=== PATIENT | male | born 1975 | race Caucasian/White ===

== ENCOUNTER 2018-09-05 18:26 | Emergency (ER) | payer OTHER ==
[2018-09-05 18:43] VITALS: RESP 18
[2018-09-05] MEDS ORDERED: DEXAMETHASONE SOD PHOSPHATE 10 MG/ML 1 ML VIAL IM STA (20:23)
[2018-09-05] MEDS ORDERED: HYDROcodone/APAP 5-325MG 1 EACH TAB PO STA (20:23)
[2018-09-05] MEDS ORDERED: Acetaminophen-Codeine 300-30mg TAB PO STA (20:23)
--- NOTE | 2018-09-05 20:25 | ED ---
General Adult HPI - General Chief complaint: Extremity Problem,Nontraumatic Stated complaint: Back injury, arm pain Time Seen by Provider: 09/05/18 19:57 Source: patient, RN notes reviewed, old records reviewed Mode of arrival: ambulatory Limitations: no limitations - History of Present Illness Initial comments: This is a 43-year-old male presents ER for evasive back pain acute on chronic back pain. Acute on chronic left shoulder pain. Patient states she is scheduled to have surgery for both back and shoulder in [place]. Denies any recent travel history or injury. Patient states he is just home from where he works or lives now currently in [place] and is out of pain medication. -: year(s) Location: left, upper extremity Radiation: back Severity scale (1-10): 3 Quality: aching Consistency: constant Improves with: medication Worsens with: movement Associated Symptoms: denies other symptoms Treatments Prior to Arrival: none - Related Data Home Medications Medication Instructions Recorded Confirmed Acetaminophen Tab [Tylenol Tab] 975 mg PO Q4H PRN 09/05/18 09/05/18 Escitalopram Oxalate [Lexapro] 15 mg PO DAILY 09/05/18 09/05/18 Lansoprazole [Prevacid] 30 mg PO DAILY 09/05/18 09/05/18 Previous Rx's Medication Instructions Recorded Naproxen [Naprosyn] 500 mg PO Q12HR PRN #30 tab 09/05/18 predniSONE 50 mg PO DAILY #5 tab 09/05/18 Allergies Allergy/AdvReac Type Severity Reaction Status Date / Time NSAIDS (Non-Steroidal AdvReac Abdominal Verified 09/06/18 15:33 Anti-Inflamma Pain Penicillins AdvReac Itching Verified 09/06/18 15:33 Review of Systems ROS Statement: Those systems with pertinent positive or pertinent negative responses have been documented in the HPI. ROS Other: All systems not noted in ROS Statement are negative. Past Medical History Additional Past Medical History / Comment(s): back pain History of Any Multi-Drug Resistant Organisms: None Reported Past Surgical History: Appendectomy Past Psychological History: Anxiety Smoking Status: Current some day smoker Past Alcohol Use History: None Reported Past Drug Use History: None Reported General Exam Limitations: no limitations General appearance: alert, in no apparent distress Head exam: Present: atraumatic, normocephalic, normal inspection Eye exam: Present: normal appearance, PERRL, EOMI. Absent: scleral icterus, conjunctival injection, periorbital swelling ENT exam: Present: normal exam, mucous membranes moist Neck exam: Present: normal inspection. Absent: tenderness, meningismus, lymphadenopathy Respiratory exam: Present: normal lung sounds bilaterally. Absent: respiratory distress, wheezes, rales, rhonchi, stridor Cardiovascular Exam: Present: regular rate, normal rhythm, normal heart sounds. Absent: systolic murmur, diastolic murmur, rubs, gallop, clicks GI/Abdominal exam: Present: soft, normal bowel sounds. Absent: distended, tenderness, guarding, rebound, rigid Extremities exam: Present: normal inspection, full ROM, normal capillary refill. Absent: tenderness, pedal edema, joint swelling, calf tenderness Back exam: Present: normal inspection Neurological exam: Present: alert, oriented X3, CN II-XII intact Psychiatric exam: Present: normal affect, normal mood Skin exam: Present: warm, dry, intact, normal color. Absent: rash Course Vital Signs 09/05/18 09/05/18 18:39 20:48 Temperature 98.1 F 98 F Pulse Rate 79 88 Respiratory 18 18 Rate Blood Pressure 126/86 129/79 O2 Sat by Pulse 99 97 Oximetry - Reevaluation(s) Reevaluation #1: Clinical record is reviewed, no prior ER visits here at this hospital Medical Decision Making - Medical Decision Making 43 male the ER for evaluation of chronic back pain chronic shoulder pain. Patient given medication here in the emergency room and discharged home. Disposition Clinical Impression: Back pain, Cervical pain (neck), Cervical radiculopathy Disposition: HOME SELF-CARE Condition: Good Instructions: Neck Pain (ED), Chronic Neck Pain (DC) Prescriptions: Naproxen [Naprosyn] 500 mg PO Q12HR PRN #30 tab PRN Reason: Pain predniSONE 50 mg PO DAILY #5 tab Is patient prescribed a controlled substance at d/c from ED?: No Referrals: Nonstaff,Physician [Primary Care Provider] - 1-2 days
[2018-09-05 20:48] VITALS: BP 129/79; PULSE 88; TEMP 98
== END 2018-09-05 20:49 | disposition home or self-care (01) ==
LOC: EC 18:26
DX: M54.12 Radiculopathy, cervical region (principal); M54.9 Dorsalgia, unspecified; F41.9 Anxiety disorder, unspecified; F17.200 Nicotine dependence, unspecified, uncomplicated; Z79.899 Other long term (current) drug therapy; Z88.0 Allergy status to penicillin; Z88.6 Allergy status to analgesic agent
CPT/HCPCS: 99283; 96372; J1100

== ENCOUNTER 2018-09-06 15:27 | Emergency (ER) | payer OTHER ==
[2018-09-06 15:36] VITALS: BP 138/85; PULSE 108; RESP 18; TEMP 98.1
[2018-09-06] MEDS ORDERED: ACET/COD 300 MG/30 MG STARTER PACK 6 TAB BTL PO STA (15:58)
--- NOTE | 2018-09-06 16:00 | ED ---
Extremity Problem HPI - General Chief complaint: Extremity Problem,Nontraumatic Stated complaint: finger/arm/shoulder pain-revisit Time Seen by Provider: 09/06/18 15:51 Source: patient, RN notes reviewed Mode of arrival: ambulatory Limitations: no limitations - History of Present Illness Initial comments: 43-year-old male presents emergency Department chief complaint of right shoulder , arm pain. Patient states that he is having surgery for carpal tunnel and nerve impingement. Patient states that he has surgery at that and this month in the wheezing and it. Patient states he is here again for pain management. Patient states his primary care physician is out of the office. Patient states that he has no loss of function. Patient states that he took naproxen and states it upsets her stomach as he has gastritis. Patient states his steroids to help some. - Related Data Home Medications Medication Instructions Recorded Confirmed Acetaminophen Tab [Tylenol Tab] 975 mg PO Q4H PRN 09/05/18 09/05/18 Escitalopram Oxalate [Lexapro] 15 mg PO DAILY 09/05/18 09/05/18 Lansoprazole [Prevacid] 30 mg PO DAILY 09/05/18 09/05/18 Previous Rx's Medication Instructions Recorded Naproxen [Naprosyn] 500 mg PO Q12HR PRN #30 tab 09/05/18 predniSONE 50 mg PO DAILY #5 tab 09/05/18 Allergies Allergy/AdvReac Type Severity Reaction Status Date / Time NSAIDS (Non-Steroidal AdvReac Abdominal Verified 09/06/18 15:33 Anti-Inflamma Pain Penicillins AdvReac Itching Verified 09/06/18 15:33 Review of Systems ROS Statement: Those systems with pertinent positive or pertinent negative responses have been documented in the HPI. ROS Other: All systems not noted in ROS Statement are negative. Past Medical History Additional Past Medical History / Comment(s): back pain History of Any Multi-Drug Resistant Organisms: None Reported Past Surgical History: Appendectomy Past Psychological History: Anxiety Smoking Status: Current some day smoker Past Alcohol Use History: None Reported Past Drug Use History: None Reported General Exam Limitations: no limitations General appearance: alert, in no apparent distress Head exam: Present: atraumatic, normocephalic, normal inspection Respiratory exam: Present: normal lung sounds bilaterally. Absent: respiratory distress, wheezes, rales, rhonchi, stridor Cardiovascular Exam: Present: regular rate, normal rhythm, normal heart sounds. Absent: systolic murmur, diastolic murmur, rubs, gallop, clicks Extremities exam: Present: other (Right arm full range motion full-strength neurovascular intact positive Tinel's, no erythema pedal pulses equal bilaterally) Skin exam: Present: warm, dry, intact, normal color. Absent: rash Course Vital Signs 09/06/18 15:33 Temperature 98.1 F Pulse Rate 108 H Respiratory 18 Rate Blood Pressure 138/85 O2 Sat by Pulse 98 Oximetry Medical Decision Making - Medical Decision Making 43-year-old male presented from for right arm neck discomfort. Patient has nerve impingement. Patient will be discharged with Tylenol codeine starter pack return parameters were discussed. Disposition Clinical Impression: Cervical radiculopathy, Carpal tunnel syndrome Disposition: HOME SELF-CARE Condition: Stable Instructions: Cervical Radiculopathy (ED) Additional Instructions: Please return to the Emergency Department if symptoms worsen or any other concerns. Is patient prescribed a controlled substance at d/c from ED?: No Referrals: Nonstaff,Physician [Primary Care Provider] - 1-2 days Time of Disposition: 16:00
== END 2018-09-06 16:10 | disposition home or self-care (01) ==
LOC: EC 15:27
DX: M54.12 Radiculopathy, cervical region (principal); G56.01 Carpal tunnel syndrome, right upper limb; F17.200 Nicotine dependence, unspecified, uncomplicated; F41.9 Anxiety disorder, unspecified; Z79.899 Other long term (current) drug therapy; Z88.0 Allergy status to penicillin; Z88.6 Allergy status to analgesic agent; Z98.890 Other specified postprocedural states
CPT/HCPCS: 99283